=== PATIENT | female | born 1960 | race African-American/Black ===

== ENCOUNTER 2018-06-08 11:21 | Day surgery (SDC) | payer OTHER ==
[~2018-06-08 11:21] MED LIST: ASA81 MG; LOPRESSOR25 MG; VASOTEC20 MG; ZOCOR40 MG
== END 2018-06-08 16:55 | disposition home or self-care (01) ==
LOC: AMB-ENDOS 11:21
DX: K64.8 Other hemorrhoids (principal); K57.30 Diverticulosis of large intestine without perforation or abscess without bleeding; Z12.11 Encounter for screening for malignant neoplasm of colon

== ENCOUNTER 2023-03-10 07:13 | Outpatient (CLI) | payer OTHER | END 2023-03-10 07:20 | disposition home or self-care (01) | LOC: TOM 07:13 | PROVIDERS: ATTEND Internal Medicine Gastroenterology | DX: K92.1 Melena (principal); K56.600 Partial intestinal obstruction, unspecified as to cause; Z12.11 Encounter for screening for malignant neoplasm of colon ==